=== PATIENT | female | born 1945 | race Caucasian/White ===

== ENCOUNTER 2019-08-15 18:02 | Emergency (ER) | payer OTHER ==
[~2019-08-15] VITALS: Ht 165.1 cm; Wt 72.8 kg
[2019-08-15 18:05] VITALS: BP 121/84
--- NOTE | 2019-08-15 18:23 | NUR ---
XRAY AT BEDSIDE
--- NOTE | 2019-08-15 18:28 | NUR ---
Eric mendoza in [facility] - 08/15/19 at 1828 by MERCEDEZ KARAN AT BEDSIDE
--- NOTE | 2019-08-15 18:28 | NUR ---
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 PT ENDORSES SYNCOPAL EPISODE WHILE GOING TO THE BATHROOM. GCS 15. VSS. BEDRAILS UP X2. PAIN 10/10 WORSE WITH MOVEMENT. HX- HTN, THYROID DZ
[2019-08-15] MEDS ORDERED: NACL 0.9% 1,000 ML IV ONE (18:30)
[2019-08-15] MEDS ORDERED: ONDANSETRON 4 MG/2 ML VIAL IVP ONE (18:30)
[2019-08-15] MEDS ORDERED: fentaNYL 0.05 MG/ML VIAL IVP ONE (18:30)
--- NOTE | 2019-08-15 19:04 | NUR ---
REPORT TO EVA DUBOIS. TRANSFER OF CARE AT THIS TIME.
--- NOTE | 2019-08-15 19:05 | NUR ---
EKG PERFORMED @ BEDSIDE
[2019-08-15 19:07] LABS: BASOPHILS % (AUTO) 0.3 % (0.0-2.0); EOSINOPHILS # (AUTO) 0.1 K/uL (0-0.4); EOSINOPHILS % (AUTO) 0.4 % (0.0-4.0); HEMATOCRIT 39.3 % (36-48); HEMOGLOBIN 12.8 g/dL (12.0-16.0); LYMPHOCYTES # (AUTO) 0.9 K/uL (2.5-16.5); LYMPHOCYTES % (AUTO) 7.7 % (20.5-51.1); MEAN CORPUSCULAR HEMOGLOBIN 31 pg (27-31); MEAN CORPUSCULAR HGB CONC 33 g/dL (33-37); MEAN CORPUSCULAR VOLUME 94.1 fL (80-94); MONOCYTES # (AUTO) 0.8 K/uL (0.8-1.0); MONOCYTES % (AUTO) 6.8 % (1.7-9.3); NEUTROPHILS # (AUTO) 10.4 K/uL (1.8-7.7); NEUTROPHILS % (AUTO) 84.8 % (42.2-75.2); PLATELET COUNT (AUTO) 233 K/uL (140-450); RED BLOOD CELL COUNT(AUTO) 4.18 MIL/uL (4.20-5.40); RED CELL DISTRIBUTION WIDTH 15.1 % (11.6-13.7); WHITE BLOOD COUNT (AUTO) 12.3 K/uL (4.8-10.8)
[2019-08-15 19:23] LABS: ANION GAP 14.7 (8-16); CARBON DIOXIDE 25.4 mmol/L (21-32); CHLORIDE 106 mmol/L (98-107); CREATININE 1.1 mg/dL (0.6-1.3); GLUCOSE 150 mg/dL (74-106); POTASSIUM 4.1 mmol/L (3.5-5.1); SODIUM SERUM 142 mmol/L (136-145); UREA NITROGEN, BLOOD 24 mg/dL (7-18)
[2019-08-15 19:28] LABS: ALBUMIN 3.4 g/dL (3.4-5.0); ASPARTATE AMINOTRANSFERASE 44 U/L (15-37); TOTAL BILIRUBIN 0.6 mg/dL (0.0-1.0)
[2019-08-15 19:40] LABS: APPEARANCE,URINE SL CLOUDY (CLEAR); BILIRUBIN,URINE NEGATIVE (NEGATIVE); BLOOD, URINE 1+ (NEGATIVE); COLOR,URINE DARK YELLOW (YELLOW); LEUKOCYTE ESTERASE ,URINE 3+ (NEGATIVE); NITRITE, URINE NEGATIVE (NEGATIVE); UGLUCOSE NEGATIVE (NEGATIVE)
--- NOTE | 2019-08-15 19:40 | NUR ---
PT TAKEN TO CT
[2019-08-15 19:51] LABS: RBC,URINE 11-20 (MOD) /HPF (0-5); WBC,URINE 80-100 /HPF (0-5)
--- NOTE | 2019-08-15 20:01 | NUR ---
PT RETURN FROM CT
--- NOTE | 2019-08-15 20:50 | NUR ---
PT LYING IN BED, COMFORT MEASURES OFFERED, PT TOLERATED WELL. PT PAIN IS LEVEL 4/10 AT THIS TIME. MADE AWARE.
--- NOTE | 2019-08-15 21:15 | NUR ---
PT RESTING IN BED WITH DAUGHTER AT THE BEDSIDE. VSS. WILL CONTINUE TO MONITOR.
--- NOTE | 2019-08-15 22:36 | NUR ---
CONTACT INFORMATION DELMA (DAUGHTER)
--- NOTE | 2019-08-15 22:39 | NUR ---
BED LEAL PROVIDED TO PT
--- NOTE | 2019-08-15 23:40 | NUR ---
PT CLEAN AND DRY AND REPOSITIONED FOR COMFORT
--- NOTE | 2019-08-16 | NUR ---
PT RESTING IN BED. VSS. WILL CONTINUE TO MONITOR.
--- NOTE | 2019-08-16 00:28 | NUR ---
TRANSFER CONSENT WAS SIGNED BY PT, ERMD MADE AWARE
--- NOTE | 2019-08-16 00:46 | NUR ---
PT TO BE TRANSFERED TO [facility] ER . DR. STAHL. ETA [id number].
--- NOTE | 2019-08-16 00:54 | NUR ---
CALLED [facility], GAVE REPORT TO RN REGARDING PT STATUS.
--- NOTE | 2019-08-16 00:57 | NUR ---
[facility] TRANSPORT AT BEDSIDE
--- NOTE | 2019-08-16 01:00 | NUR ---
LEFT VOICE MAIL FOR DAUGHTER REGARDING PT STATUS.
[2019-08-16 01:01] VITALS: BP 116/66
--- NOTE | 2019-08-16 01:01 | NUR ---
Patient to be transferred to [facility] ER. Is being transferred due to higher level of care. Receiving facility has accepting physician and available space. ER physician has signed transfer form. Patient or responsible libertarian has agreed to transfer and signed form. Patient belongings inventoried and will be sent with patient. Copy of nursing notes, lab reports, EKG, Physicians Orders and X-rays to be sent with patient. Report called to RN at receiving facility. [facility] ambulance service has been called for transfer. Transport team at bedside.
--- NOTE | 2019-08-18 19:08 | NUR ---
called pt back---she is currently admitted in [facility] i spoke with tony warren , notified of positive culture will fax over [phone] [pt is currently receiving rocephin iv as bedside rn
== END 2019-08-16 01:01 | disposition short-term general hospital (02) ==
LOC: MED 18:02
DX: R55 Syncope and collapse (principal); R11.10 Vomiting, unspecified; R19.7 Diarrhea, unspecified; I10 Essential (primary) hypertension; Z98.890 Other specified postprocedural states; Z94.4 Liver transplant status; Z86.39 Personal history of other endocrine, nutritional and metabolic disease; Z88.5 Allergy status to narcotic agent
CPT/HCPCS: 36415; 71045; 72170; 72192; 73030; 73502; 73700; 80053; 81001; 83605; 84484; 85025; 87040; 87086; 87186; 93005; 96361; 96374; 96375; 99285; C1758; J2405; J3010